=== PATIENT | male | born 1975 | race Caucasian/White ===

== ENCOUNTER 2016-11-28 01:09 | Emergency (ER) | payer OTHER ==
[~2016-11-28] VITALS: Ht 193 cm; Wt 79.4 kg
--- NOTE | ~2016-11-28 | EKG ---
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 : 1975 Requested By: Macario Fuentes Order Number: [id number] MD: Som Marcum Measurements Intervals [place] Rate: 65 P: 62 MI: 133 QRS: 65 QRSD: 100 T: 35 QT: 417 QTc: 434 Interpretive Statements Sinus rhythm Probable left atrial enlargement Left ventricular hypertrophy Baseline wander in lead(s) V1 Compared to ECG 12/24/1999 13:23:38 No significant change was found Electronically Signed On 11-28-2016 14:07:03 CDT by Som Marcum [email or web address] <ELECTRONICALLY SIGNED> By: Som Marcum MD, [facility] 11/28/16 [id number] Som Marcum MD, [facility] /EPI
[~2016-11-28 01:09] MED LIST: KEFLEX500 MG PO; NORCO 5-325 TA1 EACH PO
[2016-11-28 01:59] LABS: HEMATOCRIT 43.4 % (42.0-52.0); HEMOGLOBIN 15.1 gm/dL (14.0-18.0); MCH 32.3 pg (26.0-34.0); MCHC 34.7 g/dL (28.0-37.0); MCV 93.1 fL (80.0-100.0); PLATELET COUNT 164 thou/uL (150-400); RBC 4.67 mil/uL (4.50-6.00); RDW 13.3 % (10.5-14.5); WBC 9.3 thou/uL (4.0-11.0)
[2016-11-28 02:00] LABS: MANUAL DIFF YES
[2016-11-28 02:07] LABS: CALCIUM 8.3 mg/dL (8.5-10.1); CREATININE 0.9 mg/dL (0.7-1.3); POTASSIUM 3.9 mmol/L (3.5-5.1)
[2016-11-28 02:11] LABS: ALBUMIN 3.8 g/dL (3.4-5.0); TOTAL BILIRUBIN 0.7 mg/dL (<0.1-1.0); TOTAL PROTEIN 6.9 g/dL (6.4-8.2)
[2016-11-28 02:27] LABS: ABSOLUTE NEUTROPHILS 7.9 thou/uL (1.4-8.2); TOTAL CELL COUNT 100
[2016-11-28 02:28] LABS: LARGE PLATELETS RARE
[2016-11-28 03:05] LABS: URINE BILIRUBIN NEGATIVE (Negative); URINE BLOOD NEGATIVE (Negative); URINE COLOR YELLOW; URINE GLUCOSE-RANDOM* NEGATIVE (Negative); URINE KETONES NEGATIVE (Negative); URINE LEUKOCYTES-REFLEX NEGATIVE (Negative); URINE PROTEIN (DIPSTICK) TRACE (Negative); URINE SPECIFIC GRAVITY 1.025 (1.003-1.035)
[2016-11-28] MEDS ORDERED: PRILOSEC 20 MG20 MG PO (04:21)
[2016-11-28] MEDS ORDERED: TRAMADOL 50 MG50 MG PO (04:21)
[2016-11-28 04:30] VITALS: BP 122/77
[2016-11-30 14:10] LABS: HEPATITIS C VIRUS AB <0.1 (0.0-0.9)
== END 2016-11-28 04:36 | disposition home or self-care (01) ==
LOC: ER 01:09
PROVIDERS: Emergency Medicine
DX: K56.7 Ileus, unspecified (principal); R19.7 Diarrhea, unspecified; R94.5 Abnormal results of liver function studies